=== PATIENT | male | born 1945 | race Caucasian/White ===

== ENCOUNTER → 2017-01-08 | Outpatient (CLI) | payer MEDICARE ==
[~2017-01-08] MED LIST: ASPIRIN325 MG PO; HYDROCHLOROTHIA25 MG PO; METOPROLOL TAR100 MG PO; PERCOCET 5-3251 EACH PO; PRAVACHOL40 MG PO; ZANAFLEX4 MG PO
== END | disposition disaster alternative care site (69) ==
LOC: GRAD 13:56
DX: E04.2 Nontoxic multinodular goiter (principal)

== ENCOUNTER 2017-01-20 11:19 | Outpatient (CLI) | payer MEDICARE ==
[~2017-01-20] VITALS: Ht 172.7 cm; Wt 85.2 kg
--- NOTE | ~2017-01-20 | OR ---
PATIENT'S NAME: SHELDON BARRY [facility] AGE: 71 Y [address] ROOM: [place] [address] LOCATION: GPCU ADMIT DATE: 01/20/2017 OR/Procedure Report DISCHARGE DATE: FAMILY PHYSICIAN: Pablo Stone MD ATTENDING PHYSICIAN: SHAN FORBES SURGEON: Shan Forbes MD TECHNICAL INSTRUCTOR: DATE OF PROCEDURE: 01/20/2017 PREOPERATIVE DIAGNOSIS: Ulcer to right great toe. POSTOPERATIVE DIAGNOSIS: Ulcer to right great toe. PROCEDURE: Aortogram with diagnostic right lower extremity angiogram. SERVICE OFFICER: [employer]le [employer] staff. ESTIMATED BLOOD LOSS: 5 mL. ANESTHESIA: MAC local. OPERATIVE FINDINGS: Anterior tibial occlusion, all other vessels within normal limits. DESCRIPTION OF PROCEDURE: The patient was brought to labor relations manager, placed supine on labor relations manager table, prepped and draped in a sterile manner. Preoperative time- out was performed. We gained access via the left groin using ultrasound guidance, using micropuncture needle, followed by micropuncture wire, followed by micropuncture sheath. We exchanged using Seldinger technique for a 5- Sami short sheath. We went up in the aorta with an 0.035 Glidewire as well as Omni Flush catheter and performed an aortogram as well as a right lower extremity angiogram. The aortogram showed a patent common internal and external iliac arteries and a patent distal aorta with patent renal vessels. We then went up and over the aortic bifurcation, provided a cath in the common femoral on the right and performed a series of angiograms of the right lower extremity using digital subtraction. The profunda and SFA were widely patent. The popliteal was widely patent. The anterior tibial takeoff was patent and then abruptly occludes. The patient did report a history of having a crush injury to this leg when he was much younger and they were told that they had to tie off one of his arteries, this is likely the case with the anterior tibial, just from its appearance. The peroneal and posterior tibial vessels were patent and run onto the foot with normal flow. Sheath was removed. Pressure was held for 10 minutes. The patient tolerated the procedure well and transferred to recovery room, will be transferred to MRA for an MRA of the foot to determine whether it was osteomyelitis in that ulcer. PATIENT'S NAME: SHELDON BARRY [facility] AGE: 71 Y [address] ROOM: [place] [address] [facility] ADMIT DATE: 01/20/2017 OR/Procedure Report DISCHARGE DATE: FAMILY PHYSICIAN: Pablo Stone MD ATTENDING PHYSICIAN: SHAN FORBES MD DEEP LOMBARDI/modl /[id number] d: 01/20/172005 t: 01/21/17 151, OPERATIVE SUMMARY
[2017-01-20 12:48] LABS: CREATININE 0.8 mg/dL (0.6-1.3); ESTIMATED GFR (MDRD EQUATION) > 60
== END 2017-01-20 15:07 | disposition disaster alternative care site (69) ==
LOC: GPCU 11:19 → GCAT 11:19
PROVIDERS: Surgery Vascular Surgery
DX: L97.509 Non-pressure chronic ulcer of other part of unspecified foot with unspecified severity (principal); E04.9 Nontoxic goiter, unspecified; M86.9 Osteomyelitis, unspecified
CPT/HCPCS: A9577; C1769; C1887; J0690; J1644; J2250; J3010; J7030